=== PATIENT | male | born 1955 | race Hispanic/Latino ===

== ENCOUNTER 2020-11-20 20:07 | Emergency (ER) | payer OTHER ==
[2020-11-20] MEDS ORDERED: KETOROLAC TROMETHAMINE 60 MG/2 ML VIAL ONE (20:23)
[2020-11-20] MEDS ORDERED: CYCLOBENZAPRINE HCL 10 MG TABLET ONE (20:24)
== END 2020-11-20 21:00 | disposition home or self-care (01) ==
LOC: EDH 20:07
DX: S16.1XXA Strain of muscle, fascia and tendon at neck level, initial encounter (principal); E11.9 Type 2 diabetes mellitus without complications; X58.XXXA Exposure to other specified factors, initial encounter; Y93.89 Activity, other specified; Y92.89 Other specified places as the place of occurrence of the external cause; Y99.8 Other external cause status
CPT/HCPCS: 96372; 99283; J1885